=== PATIENT | male | born 1960 | race African-American/Black ===

== ENCOUNTER 2017-11-13 17:15 | Emergency (ER) | payer OTHER ==
[~2017-11-13] VITALS: Ht 190.5 cm; Wt 117.9 kg
[2017-11-13 17:19] VITALS: Ht 190.5 cm; Wt 117.9 kg
[2017-11-13 18:50] LABS: BASOPHIL % 0.6 % (0-2); PLATELET COUNT 295 x10^3mcL (130-400); RED CELL DISTRIBUTION WIDTH 13.8 % (11.5-14.5)
[2017-11-13 18:56] LABS: CALCIUM 8.8 mg/dL (8.5-10.1); CARBON DIOXIDE 28.3 mmol/L (21-32); CHLORIDE SERUM 95 mmol/L (98-107); CREATININE SERUM 0.5 mg/dL (0.7-1.3); GFR1 > 60 mL/min; GLUCOSE SERUM 107 mg/dL (74-106); SODIUM SERUM 133 mmol/L (136-145)
[2017-11-13 19:00] LABS: ALBUMIN 3.6 g/dL (3.4-5.0); ALKALINE PHOSPHATASE 75 U/L (46-116); ALT/SGPT 38 U/L (16-63); AST/SGOT 23 U/L (15-37); BILIRUBIN TOTAL 0.41 mg/dL (0.20-1.00); TOTAL PROTEIN, SERUM 7.8 g/dL (6.4-8.2)
[2017-11-13 21:30] VITALS: BP 127/92
== END 2017-11-13 21:30 | disposition short-term general hospital (02) ==
LOC: ED 17:15
PROVIDERS: Emergency Medicine
DX: S82.392A Other fracture of lower end of left tibia, initial encounter for closed fracture (principal); W01.0XXA Fall on same level from slipping, tripping and stumbling without subsequent striking against object, initial encounter; Y93.89 Activity, other specified; Y92.89 Other specified places as the place of occurrence of the external cause; Y99.8 Other external cause status
CPT/HCPCS: 82962; J0690; J3490; J7030; Q0092